=== PATIENT | female | born 1940 | race African-American/Black ===

== ENCOUNTER → 2016-11-27 | Day surgery (SDC) | payer MEDICARE, OTHER ==
[~2016-11-27] MED LIST: AMLO5TAB2 PO; AMLO5TAB4 PO; BENA20TA2 PO; BENA40TA15 PO; DORZ10DR7 EACHEYE; FENTANYL PF 100 MCG/2 ML VIAL. IV PRN; HYDR-2666 PO; HYDROMORPHONE 2 MG/ML VIAL. IV PRN; IV RINGERS,LACTATED 1000ML 1,000 ML IV SCH; LATA2.5D2 EACHEYE; LIDOCAINE 1% 1 ML SYRINGE. ID PRN; MORPHINE SULFATE 2 MG/ML DISP.SYRIN. IV PRN; ONDANSETRON PF 4 MG/2 ML VIAL. IV PRN; PRAV80TA PO; PROCHLORPERAZINE 10 MG/2 ML VIAL. IV PRN; PROPOFOL 20 ML IV ONE; WARF5TAB7 PO
[2016-11-27 11:57] VITALS: BP 146/88
--- NOTE | 2016-11-28 16:25 | PATHOLOGY ---
PATHOLOGY REPORT * * * * * * * * FINAL DIAGNOSIS: Colorectal biopsy, rectal polyp: - Consistent with hyperplastic polyp. COMMENT: Sections of the rectal biopsy reveal strips of rectal surface epithelium and rectal glands showing hyperplastic changes, consistent with hyperplastic polyp. There are no adenomatous changes or evidence of malignancy. (JPM:; d/t: 11/28/16) REPORT ELECTRONICALLY SIGNED BY: Betito Chavez M.D. DATE/TIME: 11/28/2016 16:24 * * * * * * * * GROSS PATHOLOGY: Received in formalin labeled "Ezequiel Heni and bx rectal polyp," are 2 segments of nguyen soft tissue measuring 0.4 x 0.2 x 0.2 cm in aggregate dimensions and each measuring 0.2 cm in maximum dimension. The specimen is submitted entirely in cassette A1. (TTL; 11/27/2016) INITIAL CPT CODE(S): A; 95875 Professional services performed [place] [facility] [place] [address] Technical services performed by [facility] at [address] [place] [address]. SPECIMEN(S) RECEIVED: A.Biopsy rectal polyp CLINICAL HISTORY: Colorectal screening PATIENT: EZEQUIEL HEIN /AGE: 502/13/1940 (Age: 76) PATIENT #: [id number] ALT CASE #: SPECIMEN COLLECTION DATE: 11/27/2016 SPECIMEN RECEIVED DATE: 11/27/2016 [facility] - [address] [place] [address] - PHONE: [phone] * * * END OF REPORT * * *
--- NOTE | 2016-11-29 03:40 | PREOP HP ---
DATE OF SERVICE: 11/27/2016 REQUESTING PHYSICIAN: Dr. Osbaldo Laguna. PRIMARY CARE PHYSICIAN: Dr. Osbaldo Laguna. REASON FOR PROCEDURE: Colorectal cancer screening. HISTORY OF PRESENT ILLNESS: This is a 76-year-old female who presents for colorectal cancer screening. Her last colonoscopy was on 05/30/2011. She had an adenomatous polyp in her ascending colon and external hemorrhoids, as well as internal hemorrhoids. FAMILY HISTORY: Negative for colorectal cancer. ALLERGIES: No known drug allergies. PAST MEDICAL HISTORY: 1. Hypertension. 2. Hemorrhoids. 3. Colon polyps. 4. Constipation. 5. Osteoarthritis. 6. Glaucoma. 7. Hyperlipidemia. SOCIAL HISTORY: No tobacco, alcohol or IV drug abuse. MEDICATIONS: 1. ____. 2. Pravastatin. 3. Dorzolamide. 4. Latanoprost. 5. Amlodipine. 6. Warfarin. PAST SURGICAL HISTORY: 1. Knee replacement. 2. Cataract surgery. 3. Breast biopsy. 4. Hysterectomy. REVIEW OF SYSTEMS: A 13-point review of systems was done. It is positive as per HPI and otherwise negative. PHYSICAL EXAMINATION: VITAL SIGNS: She is afebrile. Vital signs are stable. GENERAL: She is a well-developed, well-nourished -[place] female in no apparent distress. HEENT: Oropharynx is clear. CARDIOVASCULAR: S1, S2. LUNGS: Clear. EXTREMITIES: Does have bilateral lower extremity lymphedema. ASSESSMENT AND PLAN: Colorectal cancer screening. The risks and benefit including bleeding, perforation, ____ and sedation were explained and she has agreed to proceed. Thank you for allowing me to participate in the care of this patient. PAO SHEPHERD MD DR: AMARJIT/hayley JOB#: [id number] / [id number] ecc OSBALDO LAGUNA MD
== END | disposition home or self-care (01) ==
LOC: ENDOS 09:58
PROVIDERS: ATTEND Internal Medicine Gastroenterology
DX: Z12.11 Encounter for screening for malignant neoplasm of colon (principal); K62.1 Rectal polyp; K64.0 First degree hemorrhoids; I10 Essential (primary) hypertension; E78.00 Pure hypercholesterolemia, unspecified; M19.90 Unspecified osteoarthritis, unspecified site; Z90.710 Acquired absence of both cervix and uterus; Z87.39 Personal history of other diseases of the musculoskeletal system and connective tissue; Z96.653 Presence of artificial knee joint, bilateral
CPT/HCPCS: 45380; 88305; J2704

== ENCOUNTER → 2021-12-12 | Outpatient (CLI) | payer MEDICARE, OTHER ==
[2016-11-27 11:57] VITALS: BP 146/88
[~2021-12-12] MED LIST changes: +AMLO-186 PO; -AMLO5TAB2 PO; -BENA20TA2 PO; +BENA20TA84 PO; -FENTANYL PF 100 MCG/2 ML VIAL. IV PRN; -HYDR-2666 PO; +HYDR-2761 PO; -HYDROMORPHONE 2 MG/ML VIAL. IV PRN; -IV RINGERS,LACTATED 1000ML 1,000 ML IV SCH; -LIDOCAINE 1% 1 ML SYRINGE. ID PRN; -MORPHINE SULFATE 2 MG/ML DISP.SYRIN. IV PRN; -ONDANSETRON PF 4 MG/2 ML VIAL. IV PRN; -PROCHLORPERAZINE 10 MG/2 ML VIAL. IV PRN; -PROPOFOL 20 ML IV ONE; +WARF-31 PO; -WARF5TAB7 PO
--- NOTE | 2021-12-12 14:57 | RAD ---
EXAM: Ultrasound-guided core biopsy left breast. Post clip placement mammogram of the left breast. HISTORY: Left breast mass. COMPARISON: Left breast mammogram and ultrasound 08/20/2021. TECHNIQUE AND FINDINGS: The risks of the procedure were discussed and written and verbal consent was obtained. Sonographic evaluation of the left breast was performed, demonstrating the lesion of concer n. The lesion of concern is irregular hypoechoic mass in the 4:00 radial 2 cm from the nipple. The skin overlying the lesion was prepped and draped using sterile technique. Local anesthesia was p rovided with 1% lidocaine. A small skin incision was made and 3 14-gauge core biopsies were obtained from the lesion of concern. Subsequently, a biopsy clip was advance to the site of biopsy. Full-field digital mammographic views of the left breast demonstrate the clip in the left lower-outer breast slightly posterior to the mamm ographic mass. Compression was applied to the biopsy site until there was no evidence of bleeding. The tissue fragm ents were placed into a 10% formalin solution and sent to pathology for histologic analysis. The yuliet ent tolerated the procedure without immediate complication and was discharged in stable condition. IMPRESSION: Successful ultrasound guided biopsy of left and post-biopsy clip placement. Pathology is pending. Ple ase refer to the separate report submitted by the Pathology Department for specimen findngs. Electronically signed by: Rupert Ernst MD (12/12/2021 2:55 PM) [id number]
--- NOTE | 2021-12-13 18:08 | PATHOLOGY ---
[facility] Accession Number: [id number] . 01 Material submitted: . breast - LEFT BREAST MASS 4 O'CLOCK 2CM FN 1.9CM. Modifiers: left, 4:00, 2CM FN . 01 Clinical history: . LEFT BREAST MASS LEFT BREAST BIOPSY OBTAINED: 13:56 FORMALIN: 13:57 . 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 See synoptic report. (JPM:shanti; 12/13/2021) . . CASE SUMMARY: (INVASIVE CARCINOMA OF THE BREAST: Biopsy) . SPECIMEN Procedure ___ Needle biopsy . Specimen Laterality ___ Left . TUMOR +Tumor Site ___ Clock position: 4:00 . +Tumor Size ___ Greatest dimension of largest invasive focus greater than 1 mm: 12 mm . Histologic Type ___ Other histologic type not listed: Invasive ductal carcinoma with focal lobular features . Histologic Grade (Gerri Histologic Score) Glandular (Acinar) / Tubular Differentiation ___ Score 3 (less than 10% of tumor area forming glandular / tubular structures) . Nuclear Pleomorphism ___ Score 2 (Cells larger than normal with open vesicular nuclei, visible nucleoli, and moderate variability in both size and shape) . Mitotic Rate ___ Score 1 . Overall Grade ___ Grade 2 (scores of 6 or 7) . Ductal Carcinoma In Situ (DCIS) ___ Not identified . +Lymphovascular Invasion ___ Not identified . ADDITIONAL FINDINGS +Additional Pathologic Findings: Focal medial arterial calcification. . +Microcalcifications ___ Present in non-neoplastic tissue . SPECIAL STUDIES +Breast Biomarker Studies: Pending R 12/13/2021 1709 Local . 02 Comment: Sections of the left breast mass at 4:00 needle biopsy reveal an invasive mammary carcinoma. Tumor cells are present in solid nests and cords and show little tubule formation. The tumor is associated with a reactive desmoplastic stroma. Tumor cells show moderate nuclear pleomorphism. There are only a few mitotic figures present. There are no tumor associated calcifications. There is no lymphovascular tumor invasion. The invasive carcinoma measures up to approximately 1.2 cm in greatest dimension on the glass slide. There is focal medial arterial calcification and a few small calcifications associated with benign atrophic breast tissue. The morphologic findings are supportive of the diagnosis of an invasive ductal carcinoma with lobular features, histologic grade 2. The case is also examined by Dr. Bolton, who concurs with the diagnosis. Breast prognostic studies will be obtained on A2, the results of which will be reported separately. (JPM:shanti; 12/13/2021) . 02 Electronically signed: . Betito Chavez MD, Pathologist NPI- [id number] . 01 Gross description: . The specimen is received in formalin, labeled "[place], Eliane, left breast". The source is additionally listed on the requisition as "left breast mass at 4:00 2 cm FN". Received are 3 needle cores of fibrofatty tissue measuring 1.5 x 0.6 x 0.2 cm in aggregate dimensions. The specimen is submitted entirely in cassettes A1-A3. The specimen is collected at 1356 and placed into formalin at 1357 on 12/12/2021. The specimen is removed from formalin at 2240 on 12/12/2021. The total formalin fixation time is 8 hours and 43 minutes. ([facility]; 12/12/2021) NRI/NRI 12/12/[address] [place] [address] . 02 Pathologist provided ICD-10: C50.912 . 02 CPT . 395112 Specimen Comment: A courtesy copy of this report has been sent to [phone], [phone] Specimen Comment: [id number], Specimen Comment: Report sent to , DR KATE / DR WHITE Performed at: 01 [facility] [address] [facility] [address], [place] [id number] MD Kenroy Bolton MD Phone: [phone] Performed at: 02 [facility] [address] [place], [place] [id number] MD Betito Chavez MD Phone: [phone]
== END | disposition home or self-care (01) ==
LOC: US 13:09
PROVIDERS: ATTEND Surgery
DX: N63.23 Unspecified lump in the left breast, lower outer quadrant (principal); R92.8 Other abnormal and inconclusive findings on diagnostic imaging of breast; I10 Essential (primary) hypertension; E78.00 Pure hypercholesterolemia, unspecified; M19.90 Unspecified osteoarthritis, unspecified site; Z90.710 Acquired absence of both cervix and uterus; Z98.890 Other specified postprocedural states; Z79.899 Other long term (current) drug therapy
CPT/HCPCS: 19083; 77065; A4648; C1819